=== PATIENT | male | born 1940 | race Caucasian/White ===

== ENCOUNTER 2023-05-08 21:11 | Observation (INO) | payer MEDICARE, BC ==
[2023-05-08 21:39] LABS: BASOPHILS ABSOLUTE AUTO 0.04 K/uL (0.00-0.20); BASOPHILS PERCENT AUTO 0.5 % (0.0-2.0); EOSINOPHILS ABSOLUTE AUTO 0.25 K/uL (0.00-0.50); EOSINOPHILS PERCENT AUTO 3.1 % (0.0-5.0); HEMATOCRIT 46.5 % (39.0-49.0); HEMOGLOBIN 15.8 g/dL (13.1-16.8); LYMPHOCYTES ABSOLUTE AUTO 2.09 K/uL (0.50-3.50); MEAN CORPUSCULAR VOLUME 88.2 fL (84.0-98.0); MONOCYTES ABSOLUTE AUTO 0.71 K/uL (0.00-1.00); MONOCYTES PERCENT AUTO 8.8 % (2.0-14.0); NEUTROPHILS ABSOLUTE AUTO 4.96 K/uL (1.40-7.00); NEUTROPHILS PERCENT AUTO 61.6 % (45.0-80.0); PLATELET COUNT,PLT 228 K/uL (150-350); RED BLOOD CELL COUNT 5.27 M/uL (4.33-5.41); RED CELL DISTRIBUTION WIDTH 13.8 % (11.2-14.1); WHITE BLOOD CELL COUNT,WBC 8.1 K/uL (4.0-10.2)
[2023-05-08] MEDS ORDERED: Aspirin 81 MG Tab.Chew PO ONE (21:45)
[2023-05-08] MEDS ORDERED: Nitroglycerin 0.4 MG Tab.SL SL ONE (21:45)
[2023-05-08 21:59] LABS: ALANINE AMINOTRANSFERASE,ALT 25 U/L (12-78); ALBUMIN 4.4 g/dL (3.4-5.0); ALKALINE PHOSPHATASE 87 IU/L (46-116); ASPARTATE AMNIOTRANSFERASE,AST 22 U/L (15-37); BILIRUBIN TOTAL 0.6 mg/dL (0.2-1.0); BLOOD UREA NITROGEN,BUN 10 mg/dL (7-18); CARBON DIOXIDE,CO2 25.5 mmol/L (21.0-32.0); CHLORIDE,CL 100 mmol/L (98-107); CREATININE 1.32 mg/dL (0.51-1.17); GLUCOSE RANDOM 271 mg/dL (70-99); POTASSIUM,K 4.1 mmol/L (3.5-5.1); PROTEIN TOTAL,TP 7.8 g/dL (6.4-8.2); SODIUM,NA 135 mmol/L (136-145)
[2023-05-08 22:02] LABS: ANION GAP 13.6 meq/L (7-15); ESTIMATED GFR 55 mL/min (>=60)
[2023-05-08] MEDS ORDERED: Sodium Chloride 0.9% 500 ML IV SCH (22:15)
[2023-05-08 22:28] LABS: APPEARANCE,URINE CLEAR; BILIRUBIN,URINE NEGATIVE (NEGATIVE); COLOR,URINE YELLOW; GLUCOSE,URINE 500 mg/dL (NEGATIVE); KETONES,URINE NEGATIVE (NEGATIVE); LEUKOCYTE ESTERASE,URINE NEGATIVE (NEGATIVE); NITRITE,URINE NEGATIVE (NEGATIVE); OCCULT BLOOD,URINE NEGATIVE (NEGATIVE); PROTEIN,URINE NEGATIVE (NEGATIVE)
[2023-05-08] MEDS ORDERED: Glucagon,Human Recombinant 1 MG Vial IM PRN ×2 (22:30→22:49)
[2023-05-08] MEDS ORDERED: 50% Dextrose in Water 50 ML Syringe IVPUSH PRN ×2 (22:30→22:49)
[2023-05-08] MEDS ORDERED: Insulin Regular, Human 100 Units/ML 3 ML Vial SUBCUT ONE (22:30)
[2023-05-08] MEDS ORDERED: Ondansetron 4 MG/2 ML SDV IVPUSH PRN (22:44)
[2023-05-08] MEDS ORDERED: Acetaminophen 325 MG Tab PO PRN (22:44)
[2023-05-08 22:45] LABS: HEMOGLOBIN A1C 6.7 % (4.3-5.7)
[2023-05-08] MEDS ORDERED: Pantoprazole 40 MG Vial IVPUSH ONE (22:53)
[2023-05-08] MEDS ORDERED: Nitroglycerin 0.4 MG Tab.SL SL PRN (22:53)
[2023-05-08] MEDS: Sodium Chloride 0.9% 10 ML Syringe FLUSH PRN (23:50)
[2023-05-08] MEDS ORDERED: Sodium Chloride 0.9% 1,000 ML IV SCH (23:55)
[2023-05-09] MEDS: Sodium Chloride 0.9% 10 ML Syringe FLUSH PRN (02:08)
[2023-05-09] MEDS ORDERED: Heparin Sodium/0.45% NaCl 500 ML IV SCH (03:45)
[2023-05-09] MEDS ORDERED: Heparin Sodium 5,000 Units/ML Vial IVPUSH ONE (04:00)
[2023-05-09] MEDS ORDERED: Insulin Regular, Human 100 Units/ML 3 ML Vial SUBCUT SCH (07:00)
[2023-05-09] MEDS ORDERED: Non-Formulary Medication 1 Each (Sitagliptin Phosphate [Januvia] 25 MG Tablet) PO SCH (08:00)
[2023-05-09] MEDS ORDERED: Lisinopril 5 MG Tab PO SCH (08:00)
[2023-05-09 08:10] LABS: BASOPHILS ABSOLUTE AUTO 0.06 K/uL (0.00-0.20); BASOPHILS PERCENT AUTO 0.8 % (0.0-2.0); EOSINOPHILS ABSOLUTE AUTO 0.17 K/uL (0.00-0.50); EOSINOPHILS PERCENT AUTO 2.2 % (0.0-5.0); HEMATOCRIT 45.9 % (39.0-49.0); HEMOGLOBIN 15.6 g/dL (13.1-16.8); LYMPHOCYTES ABSOLUTE AUTO 1.73 K/uL (0.50-3.50); LYMPHOCYTES PERCENT AUTO 22.2 % (10.0-50.0); MEAN CORPUSCULAR HEMOGLOBIN 30.4 pg (28.2-33.3); MEAN CORPUSCULAR VOLUME 89.3 fL (84.0-98.0); MONOCYTES ABSOLUTE AUTO 0.67 K/uL (0.00-1.00); MONOCYTES PERCENT AUTO 8.6 % (2.0-14.0); NEUTROPHILS ABSOLUTE AUTO 5.18 K/uL (1.40-7.00); NEUTROPHILS PERCENT AUTO 66.2 % (45.0-80.0); PLATELET COUNT,PLT 205 K/uL (150-350); RED BLOOD CELL COUNT 5.14 M/uL (4.33-5.41); RED CELL DISTRIBUTION WIDTH 13.8 % (11.2-14.1); WHITE BLOOD CELL COUNT,WBC 7.8 K/uL (4.0-10.2)
[2023-05-09 08:33] LABS: BLOOD UREA NITROGEN,BUN 9 mg/dL (7-18); CALCIUM 9.9 mg/dL (8.5-10.1); CARBON DIOXIDE,CO2 29.6 mmol/L (21.0-32.0); CHLORIDE,CL 104 mmol/L (98-107); CREATININE 1.37 mg/dL (0.51-1.17); GLUCOSE RANDOM 166 mg/dL (70-99); POTASSIUM,K 5.4 mmol/L (3.5-5.1); SODIUM,NA 139 mmol/L (136-145)
[2023-05-09 08:37] LABS: ANION GAP 10.8 meq/L (7-15); ESTIMATED GFR 52 mL/min (>=60)
== END 2023-05-09 09:30 ==
LOC: LL.ED 21:11 → LL.MS 22:30
PROVIDERS: ADMIT Emergency Medicine; ATTEND Emergency Medicine
DX: R07.9 Chest pain, unspecified (principal); R79.89 Other specified abnormal findings of blood chemistry; I10 Essential (primary) hypertension; N40.0 Benign prostatic hyperplasia without lower urinary tract symptoms; M19.90 Unspecified osteoarthritis, unspecified site; E11.9 Type 2 diabetes mellitus without complications; E66.9 Obesity, unspecified; Z79.899 Other long term (current) drug therapy
CPT/HCPCS: 36415; 71046; 80048; 80053; 81003; 82947; 83036; 83735; 84484; 85025; 85379; 85730; 93005; 93010; 99223; 99238; 99285; A9270-GY; C9113; J1644; J1815-GY; J3490; J7030; J7040

== ENCOUNTER 2024-06-23 11:27 | Emergency (ER) | payer MEDICARE, BC | END 2024-06-23 12:08 | disposition home or self-care (01) | LOC: LL.ED 11:27 | DX: S00.81XA Abrasion of other part of head, initial encounter (principal); F17.210 Nicotine dependence, cigarettes, uncomplicated; E11.9 Type 2 diabetes mellitus without complications; E66.9 Obesity, unspecified; M19.90 Unspecified osteoarthritis, unspecified site; I10 Essential (primary) hypertension; Z79.82 Long term (current) use of aspirin; Z79.899 Other long term (current) drug therapy; W18.30XA Fall on same level, unspecified, initial encounter | CPT/HCPCS: 99282; 99284 ==